=== PATIENT | male | born 1940 | race Caucasian/White ===

== ENCOUNTER 2020-08-11 06:23 | Day surgery (SDC) | payer MEDICARE, OTHER ==
[2020-08-11] MEDS ORDERED: Lactated Ringers 1,000 ML IV SCH (06:30)
[2020-08-11] MEDS ORDERED: DIPRIVAN 200 MG/20 ML IV ONE ×2 (08:04→08:21)
[2020-08-11 09:21] VITALS: BP 135/77; PULSE 84; O2SAT 99
--- NOTE | 2020-08-11 09:46 | OP ---
SURGERY DATE/TIME: 08/11/2020 0803 PREOPERATIVE DIAGNOSES: 1) Unintentional weight loss. 2) Change in bowel habits. POSTOPERATIVE DIAGNOSES: 1) Mild gastritis. 2) Poor bowel prep. 3) Rectal colitis. PROCEDURES: 1) EGD. 2) Colonoscopy. SURGEON: Garrison Stanley M.D. ANESTHESIA: MAC by Felice Barillas CRNA. ESTIMATED BLOOD LOSS: Minimal. SPECIMENS: There were two cold forceps biopsies from the gastric antrum and two cold forceps biopsies randomly from the rectum. DESCRIPTION OF PROCEDURE: After informed written consent was obtained, the patient was taken to the endoscopy suite. He reported compliance with bowel prep but I did not feel he was cleared therefore he was given tap water enemas with persistent stool prior to initiation of the procedure. He was placed in left lateral decubitus position and a bite block inserted. Anesthesia was titrated to desired level of consciousness. The endoscope was inserted in the posterior oropharynx. The esophageal mucosa was easily traversed free of any lesions or defects. The gastroesophageal junction likewise had a normal mucosal appearance. Upon entering the stomach there was normal rugated gastric mucosa. There were some dried flecks of blood and some inflammation down in the gastric antrum but no obvious ulceration or active bleeding. The pylorus was traversed and the duodenum had a normal mucosal appearance. Two cold forceps biopsies were taken from the gastric antrum and sent for Helicobacter pylori testing. Upon withdrawal no other mucosal abnormalities were appreciable. The scope was removed and the scopes were switched. Digital rectal exam showed normal sphincter tone. The scope was inserted in the rectum and the colonic was traversed. There was solid stool throughout multiple different areas of the colon but I was able to reach the level of the cecum with visualization of the ileocecal valve. Upon withdrawal mucosal inspection revealed no gross abnormalities. There were no large masses or polyps present but again prep was poor and suboptimal due to solid stool in different areas of the colon. When the rectum was reached, there were inflammatory-type changes but this might have been secondary to enemas given due to poor prep. Two random biopsies were taken from the rectal mucosa due to mild inflammatory changes present. Prior to withdrawal retroflexion was performed and showed no internal lesions. The scope was removed and the patient was transferred to the recovery room in good condition. I have advised him to hold his Plavix for one week to allow for biopsy sites to heal and to follow up in a week for pathology.
== END 2020-08-11 09:34 | disposition home or self-care (01) ==
LOC: SDC 06:23
PROVIDERS: ATTEND Family Medicine
DX: K29.70 Gastritis, unspecified, without bleeding (principal); K52.9 Noninfective gastroenteritis and colitis, unspecified; R19.4 Change in bowel habit; R63.4 Abnormal weight loss; I10 Essential (primary) hypertension
CPT/HCPCS: 99100; J2704